=== PATIENT | female | born 1990 | race Caucasian/White ===

== ENCOUNTER 2020-01-06 22:27 | Inpatient (IN) | payer MEDICAID ==
[~2020-01-06] VITALS: Ht 185.4 cm; Wt 83.2 kg
[2020-01-06 23:43] LABS: PLATELET COUNT 269 x10^3mcL (130-400); RED CELL DISTRIBUTION WIDTH 13.4 % (11.5-14.5)
[2020-01-06 23:44] LABS: BASOPHIL % 0 % (0-2)
[2020-01-06 23:53] LABS: CALCIUM 8.2 mg/dL (8.5-10.1); CARBON DIOXIDE 24.1 mmol/L (21-32); CHLORIDE SERUM 93 mmol/L (98-107); CREATININE SERUM 0.8 mg/dL (0.6-1.0); GFR1 > 60 mL/min; GLUCOSE SERUM 139 mg/dL (74-106); POTASSIUM SERUM 3.1 mmol/L (3.5-5.1); SODIUM SERUM 127 mmol/L (136-145)
[2020-01-07] VITALS (7 sets, daily range): BP systolic 88–129; BP diastolic 47–76
[2020-01-07 00:03] LABS: ALKALINE PHOSPHATASE 170 U/L (46-116); ALT/SGPT 63 U/L (14-59); AST/SGOT 46 U/L (15-37); BILIRUBIN TOTAL 1.1 mg/dL (0.20-1.00); TOTAL PROTEIN, SERUM 7.4 g/dL (6.4-8.2)
[2020-01-07 00:18] LABS: ALBUMIN 2.8 g/dL (3.4-5.0); C REACTIVE PROTEIN 28.7 mg/dL (<=0.9)
[2020-01-07 00:21] LABS: ERYTHROCYTE SED RATE 102 mm/hr (0-20)
[2020-01-07] MEDS ORDERED: KEPPRA500 MG PO (00:42)
[2020-01-07 01:38] LABS: AMPHETAMINE QUAL UR POSITIVE (See below)
[2020-01-07 02:09] LABS: UA SPECIFIC GRAVITY <=1.005 (1.005-1.035); microscopic required? YES; urine erythrocyte TRACE (NEGATIVE)
== END 2020-01-07 20:34 | disposition short-term general hospital (02) | DRG 720 ==
LOC: ED 22:27 → DU 01-07 00:23
PROVIDERS: Emergency Medicine; ADMIT Student in an Organized Health Care Education/Training Program; ATTEND Student in an Organized Health Care Education/Training Program
DX: A41.9 Sepsis, unspecified organism (principal); E44.0 Moderate protein-calorie malnutrition; E87.1 Hypo-osmolality and hyponatremia; E83.51 Hypocalcemia; L03.114 Cellulitis of left upper limb; Z90.49 Acquired absence of other specified parts of digestive tract; G40.89 Other seizures; F19.10 Other psychoactive substance abuse, uncomplicated; D64.9 Anemia, unspecified; R74.0 Nonspecific elevation of levels of transaminase and lactic acid dehydrogenase [LDH]; F15.90 Other stimulant use, unspecified, uncomplicated
CPT/HCPCS: G0378; J1885; J2310; J2543; J3370; J7030; Q0092; Q9967; U0003-CS